=== PATIENT | female | born 1990 | race Caucasian/White ===

== ENCOUNTER 2016-11-03 16:42 | Inpatient (IN) | payer BC ==
[~2016-11-03] VITALS: Ht 167.6 cm; Wt 85.0 kg
--- NOTE | ~2016-11-03 | DS ---
PATIENT'S NAME: VÍCTOR CARBALLO [place] AGE: 26 Y [address] ROOM: [id number] [place], [place] [address] LOCATION: GPCU ADMIT DATE: 11/03/2016 Discharge Summary DISCHARGE DATE: 11/06/2016 FAMILY PHYSICIAN: Slim Arellano MD ATTENDING PHYSICIAN: Tay Perez PRINCIPAL DISCHARGE DIAGNOSIS: Diabetic ketoacidosis. SECONDARY DIAGNOSES: 1. Diabetes mellitus, type 2, uncontrolled. 2. Leukocytosis. 3. Systemic inflammatory response syndrome without focus of infection identified. 4. Cough. 5. Hypokalemia, mild. 6. Hypertension. CONSULTATIONS: community nutrition educator on 11/04/2016. PROCEDURES: None. BRIEF HISTORY: Ms. Carballo is a 26-year-old female who has been insulin-dependent diabetic on insulin pump without good outpatient followup. She presented to the emergency room after developing nausea, which was progressive and intractable with epigastric pain and anorexia. This occurred after she had been drinking the night before. She was having some chills and sweats, but no documented fever. On admission, she had epigastric abdominal pain and complained of feeling generally sore all over. She was noted to be in diabetic ketoacidosis. On admission, white blood cell count elevated at 30,000, hemoglobin 14.4, hematocrit 49.3, and platelets 481, BUN and creatinine 29 and 2.4 respectively, sodium 131, and potassium 5.6. Her CO2 was less than 5. Her pH was less than 7. She was given an amp of bicarb. Her serum glucose was 1005. She was admitted to the ICU, put on insulin drip, hourly blood sugar checks, and she did well with closing of our gaps within the 1st day of admission and she was taken off of the insulin drip early in morning of 11/04/2016. She was treated with Levemir and sliding scale on 11/05/2016 and restarted on her insulin pump on 11/05/2016. Since then, she has been improving. She has mild cough that is nonproductive of any purulent sputum. Blood glucose was 207, prior to breakfast it was 131, she ran into 200s yesterday, and at 2 a.m., she was 127. She has been able to tolerate food, no nausea, her myalgias are improving, she PATIENT'S NAME: VÍCTOR CARBALLO [place] AGE: 26 Y [address] ROOM: [id number] [place], [place] [address] LOCATION: GPCU ADMIT DATE: 11/03/2016 Discharge Summary DISCHARGE DATE: 11/06/2016 FAMILY PHYSICIAN: Slim Arellano MD ATTENDING PHYSICIAN: Tay Perez has been ambulating in the hallway. She and her mom who is present in the room agreed with discharge plan today. INSTRUCTIONS AT DISCHARGE: ADA diet, low carb, high-protein foods. She was instructed to have a lean protein with every meal and eat some high potassium foods of cantaloupes, oranges, or bananas. Activity walk 30 minutes everyday. Follow up with Dr. Parker, November 14 at 11 a.m., [facility], November 14 at 10 a.m., and [facility] dietitian on November 24 at 10:30 a.m. MEDICATIONS AT DISCHARGE: Include regular insulin via pump. She is instructed to follow the directions given by the ems educator yesterday. She is instructed to limit her use of ibuprofen due to potential renal side effects. She had been taking 200 mg tabs 2-3 every 6 hours p.r.n. at home. She will be given a script for Tessalon Perles 100 mg p.o. q.8 h. p.r.n. cough. She will be given a script for lisinopril 2.5 mg 1 p.o. daily, blood pressure is currently 155/110, she will also be given a script for azithromycin 500 1 p.o. daily x3 days for possible atypical pneumonia given the current low-grade temp of 99.3 to 99.9 and her mild cough. She is instructed to call Dr. Parker if her temperature goes over 101. CONDITION AT DISCHARGE: Good. Greater than 30 minutes spent in the discharge process. SONAM PAYAN MD LM/sandra /[id number] d: 11/07/16 0517 t: 11/14/16 1820, DISCHARGE SUMMARY
--- NOTE | ~2016-11-03 | HP ---
[facility] 26 [facility] [address] ROOM: [place] [address] LOCATION: GICU ADMIT DATE: 11/03/2016 History & Physical DISCHARGE DATE: FAMILY PHYSICIAN: Slim Arellano MD ATTENDING PHYSICIAN: Tay Perez DATE OF SERVICE: CHIEF COMPLAINT: Diabetic ketoacidosis. HISTORY OF PRESENTING ILLNESS: This 26-year-old white female with history of insulin-dependent diabetes mellitus utilizing an insulin pump and came to the emergency department this evening with intractable nausea, vomiting, and abdominal pain, which started yesterday. She admits that she had gone out to have some drinks with friends as she often does on Thursday night. She indulged, but cannot quantify exactly how much that she drank. Sometime during the night on Thursday morning, she developed some nausea. This became progressive and intractable. She developed diffuse epigastric pain and anorexia. This persisted over the course of the day yesterday and through this morning until she ultimately decided to come to the emergency room today. She denies noticing fevers, but admits that she has not actually taken her temperature. She has had some chills and sweats. Also, complains of some aching in her chest, but feels better since IV fluids were initiated. Her abdominal pain is epigastric, but also resolving now. She complains of feeling "sore." She has been stooling regularly and stooled last yesterday. She has also been voiding in large amounts over the course of the day today. She denies body rash, no numbness or tingling in her extremities or any associated physical or constitutional complaints. ALLERGIES: NO KNOWN DRUG ALLERGIES. ILLNESSES: 1. Insulin-dependent diabetes mellitus. 2. Obesity. CURRENT MEDICATIONS: NovoLog per insulin pump and this is managed by Dr. Deny Arellano in [place] and an director of strategic sourcing in [place]. She has not seen the director of strategic sourcing for a year. FAMILY HISTORY: [facility] 26 Y [address] ROOM: [place] [address] LOCATION: GI ADMIT DATE: 11/03/2016 History & Physical DISCHARGE DATE: FAMILY PHYSICIAN: Slim Arellano MD ATTENDING PHYSICIAN: Tay Perez Largely noncontributory. Maternal grandmother did have breast cancer. She has another cousin who also had breast cancer recently. SOCIAL HISTORY: She is unmarried. Lives here in [place]. She works at [employer]. She admits to binge type drinking typically on Saturdays and Wednesdays. She denies any illicit drug use. She occasionally smokes tobacco. REVIEW OF SYSTEMS: As per HPI. All other organ systems reviewed and are negative. OBJECTIVE: VITAL SIGNS: Temperature. 99.1, pulse 114, respirations 28, blood pressure 136/86, and O2 sat 97% on room air. GENERAL: She is anxious and visibly tachypneic in moderate distress. SKIN: Supple, pink, warm, dry. No obvious rashes. She does have a tattoo over the left upper chest. HEENT: Otherwise, normocephalic. Sclerae nonicteric. Pupils equal, round, and reactive to light and accommodation. Extraocular movements appear intact. Nasal turbinates normal in appearance. Oropharynx clear. Mucous membranes are pink and moist. NECK: Supple. No masses or adenopathy. No thyromegaly. No JVD. CHEST: Chest wall is symmetrical. HEART: Tachycardic, but regular. LUNGS: Diminished at the bases. No crackles or wheezes are heard. No areas of consolidation. ABDOMEN: Soft and obese. Diffusely tender with some guarding across the midepigastrium. No masses. No hepatosplenomegaly. AND RECTAL: Not done. EXTREMITIES: Display no significant clubbing, cyanosis, or edema. NEUROLOGICAL: Anxious, but no focal deficits. LABORATORY AND X-RAY DATA: CBC showed a white blood cell count elevated at 30,000, hemoglobin is 14.4, hematocrit 49.3, and platelets 481. Chemistries revealed BUN and creatinine of 29 and 2.4 respectively, sodium and potassium 131 and 5.6, chloride and CO2 are 94 and less than 5, calcium is 9.1, AST and ALT 20 and 22 respectively, bilirubin is 0.6, and magnesium level was elevated at 2.8. Amylase and lipase were within normal limits. Serum ethanol was less than 0.01. TSH was 1.24, free T4 was 1.0, and glucose was 1005. PT and PTT 10.2 and 30 with an INR of 0.97. Urinalysis demonstrated a 1000 of glucose, 150 of ketones, negative for white blood cells and 2-5 rbc's. Urine drug screen was negative. Serum hCG was less than 1. Serum acetone was positive at 1:16. D-dimer was within normal limits. PATIENT'S NAME: VÍCTOR CARBALLO [facility] AGE: 26 Y [address] ROOM: [place] [address] LOCATION: [facility] ADMIT DATE: 11/03/2016 History & Physical DISCHARGE DATE: FAMILY PHYSICIAN: Slim Arellano MD ATTENDING PHYSICIAN: Tay Perez ASSESSMENT AND PLAN: 1. Diabetic ketoacidosis. We will admit to inpatient care. She is going to the ICU. She has already received 3 L normal saline in the emergency department. She got a bolus of insulin there and we will initiate intravenous insulin drip. We will place her on the diabetic ketoacidosis pathway. Plan to continue with aggressive fluid hydration therapy and transition to D5 NS with 20 mEq of potassium once her glucose has fallen to below 250. She did receive an amp of bicarb in the emergency room. We will follow up with electrolytes again this evening and follow her serum bicarb and anion gap. 2. Systemic inflammatory response syndrome, presumably secondary to diabetic ketoacidosis, as above. There is no clear infectious source. We will initiate broad-spectrum antibiotic therapy with Zosyn and follow clinically. Follow up when culture results are known. I will repeat a lactate again at 6 hour vandana. 3. Insulin-dependent diabetes mellitus. We will request diabetes education. She needs closer clinical follow up and counseling regarding alcohol use. 4. Deep venous thrombosis prophylaxis. We will follow the deep vein thrombosis protocol. MD NICOLA FORRESTER/talishal /[id number] D: 018 T: 958 HISTORY & PHYSICAL
--- NOTE | ~2016-11-03 | ER ---
[facility] 26 Y [address] ROOM: [place] [address] LOCATION: GICU ADMIT DATE: 11/03/2016 ER/Outpatient Report DISCHARGE DATE: FAMILY PHYSICIAN: Slim Arellano MD ATTENDING PHYSICIAN: Tay Perez Time of Arrival: 1647 hours. Time of Evaluation: 1650 hours. CHIEF COMPLAINT: Vomiting and shortness of breath. HISTORY OF PRESENT ILLNESS: The patient states approximately 02:30 this morning, she started getting sick to her stomach. She has been vomiting pretty consistently all day today. She states that she has developed some generalized aches of her whole body and feeling short of breath, extreme fatigue. She is an insulin-dependent diabetic and wears an insulin pump. She states she has not checked her blood sugars. She states she does drink alcohol on a regular basis. Last drink was Thursday night and Thursday morning. She states that she has not felt well for the last 3 days. ALLERGIES: NO KNOWN ALLERGIES. CURRENT MEDICATIONS: On the chart and reviewed by me. PAST MEDICAL HISTORY: Insulin-dependent diabetes. SOCIAL HISTORY: She denies use of tobacco. Does smoke marijuana and drinks alcohol on an almost daily occurrence. She states her primary provider is Dr. Arellano in [place], but she has not seen him for a couple years. She is unsure when her last menstrual period was. She states the last time she had intercourse was a couple weeks ago and she used Plan B after that encounter. REVIEW OF SYSTEMS: All negative other than those mentioned in the HPI. PHYSICAL EXAMINATION: VITAL SIGNS: She weighs 81 kg. Blood pressure was 178/85, pulse of 140, respirations 30, temperature of 99 tympanic, O2 saturations are 96% on room air. PATIENT'S NAME: [facility] AGE: 26 Y [address] ROOM: [place] [address] LOCATION: GICU ADMIT DATE: 11/03/2016 ER/Outpatient Report DISCHARGE DATE: FAMILY PHYSICIAN: Slim Arellano MD ATTENDING PHYSICIAN: Tay Perez GENERAL: She is awake, alert, and oriented x4. RESPIRATIONS: Her respirations are rapid, slightly labored. She is encouraged to take deep breath and slower breathing down. HEENT: Pupils are equal reactive to light. Extraocular movement is intact. Nasal is clear. Oropharynx is clear. NECK: Supple. No lymphadenopathy. LUNGS: Lung sounds are clear throughout. HEART: Regular rate and rhythm and rapid. ABDOMEN: Soft, nondistended. Bowel sounds are present. EXTREMITIES: She walked in with a steady even gait. No peripheral edema noted. Moves all extremities strongly and equally. EMERGENCY DEPARTMENT COURSE: Saline lock was initiated. Fluids of normal saline were started at a wide- open rate. Lab work was drawn. CBC shows a white count of 30, hemoglobin 14.4 with hematocrit of 49.3. Her pH is 6.9, it was called to Dr. Espinoza. He wants the patient to receive an amp of bicarb which was done. Lactate was 11.2. Acetone was positive. D-dimer is negative. HCG is negative. Sodium is 131, potassium is 5.6, chlorides were 94, CO2 was less than 5, glucose is 1005, BUN is 29, creatinine of 2.9, magnesium is 2.8, GFR is 25. I attempted to do an EKG and this shows sinus tachy. The patient is just moving constantly as she is uncomfortable. Dr. Espinoza was consulted regarding the patient. She was given a total of 3 L of normal saline here in the ER. She got Zofran 4 mg IV and fourth liter of fluids was started at 200 an hour. She was given Ativan 1 mg IV, the bicarb 1 amp IV, and then insulin bolus of 10 units was given with a drip started at [address] Perez was contacted regarding the patient as she has no primary provider here in town. IMPRESSION: Diabetic ketoacidosis. PLAN: The patient will be placed in ICU for care of the hospitalist. She is aware of the plan. Critical care time was 30-60 minutes. NBA MONTENEGRO APRN FOR MD ÁNGEL JOHNSON/sandra /[id number] d: 11/04/16 0050 t: 11/08/16610, OUTPATIENT REPORT
[2016-11-03 17:15] LABS: HEMATOCRIT 49.3 % (33.0-46.0); HEMOGLOBIN 14.4 g/dL (11.0-15.0); MCH 29.6 pg (27.0-34.0); MCHC 29.2 gm/dL (32.0-36.5); MCV 101.2 fl (83.0-98.0); MPV 10.7 fl (9.4-12.4); PLATELET COUNT 481 K/uL (150-450); RBC 4.87 M/uL (3.50-5.00); RDW-CV 13.6 % (11.9-14.6)
[2016-11-03 17:25] LABS: LACTATE 11.2 mEq/L (0.50-1.60)
[2016-11-03 17:28] LABS: INR - (THERAPEUTIC) 0.97 (0.92-1.07); PROTIME 10.2 SECONDS (9.8-11.4); PTT 30 SECONDS (25-32)
[2016-11-03 17:50] LABS: ALBUMIN 3.9 gm/dL (3.5-5.0); ALK PHOS 246 IU/L (33-138); ALT 22 IU/L (12-78); AST 20 IU/L (10-40); BLOOD UREA NITROGEN 29 mg/dL (6-24); CALCIUM 9.1 mg/dL (8.5-10.5); CHLORIDE 94 mMol/L (96-110); CREATININE 2.4 mg/dL (0.5-1.1); ESTIMATED GFR (MDRD EQUATION) 25; SODIUM 131 mMol/L (135-145); TOTAL BILIRUBIN 0.6 mg/dL (0.0-1.5); TOTAL PROTEIN 8.1 g/dL (6.0-8.4)
[2016-11-03 18:06] LABS: BANDED NEUTROPHILS % 10 %; LYMPHOCYTE # 4.2 K/uL (0.8-4.0); LYMPHOCYTE % 14 %; MONOCYTE # 1.8 K/uL (0.0-1.0); SEGMENTED NEUTROPHIL % 70 %
[2016-11-03 18:15] LABS: BILIRUBIN URINE NEGATIVE (NEGATIVE); BLOOD URINE 250 /UL (NEGATIVE); COLOR URINE STRAW (YELLOW); GLUCOSE URINE 1000 mg/dL (NEGATIVE); KETONE URINE 150 mg/dL (NEGATIVE); LEUKOCYTES URINE NEGATIVE /UL (NEGATIVE); NITRITE URINE NEGATIVE (NEGATIVE); PROTEIN URINE 15 mg/dL (NEGATIVE); SPEC GRAVITY URINE 1.015 (1.003-1.035); UROBILINOGEN URINE NORMAL (NORMAL)
[2016-11-03 18:20] LABS: CO2 < 5 mMol/L (22-32); POTASSIUM 5.6 mMol/L (3.7-5.1)
[2016-11-03 18:21] LABS: MAGNESIUM 2.8 mg/dL (1.8-2.6)
[2016-11-03 18:36] LABS: COCAINE NEGATIVE (NEGATIVE); OPIATES NEGATIVE (NEGATIVE)
[2016-11-03 18:37] LABS: AMPHETAMINE NEGATIVE (NEGATIVE); BARBITURATE NEGATIVE (NEGATIVE)
[2016-11-03 18:39] LABS: TURBIDITY URINE 1+ (CLEAR)
[2016-11-03 18:40] LABS: WBC URINE NEGATIVE #/HPF (NEGATIVE)
[2016-11-03 18:41] LABS: BACTERIA URINE NEGATIVE (NEGATIVE)
[2016-11-03] MEDS ORDERED: NOVOLOG100 UNIT/M SUB-Q (20:04)
[2016-11-03] MEDS ORDERED: ALEVE220 MG PO (20:05)
[2016-11-03] MEDS ORDERED: ADVIL200 MG PO (20:05)
[2016-11-03 20:43] LABS: CHLORIDE 111 mMol/L (96-110)
[2016-11-03 20:51] LABS: CO2 < 5 mMol/L (22-32); MAGNESIUM 2.5 mg/dL (1.8-2.6); SODIUM 142 mMol/L (135-145)
[2016-11-03 23:02] LABS: CALCIUM 8.5 mg/dL (8.5-10.5); CREATININE 1.7 mg/dL (0.5-1.1); MAGNESIUM 2.5 mg/dL (1.8-2.6); POTASSIUM 4.5 mMol/L (3.7-5.1)
[2016-11-03 23:03] LABS: ANION GAP 27.5 (10.0-19.0)
[2016-11-04 00:12] LABS: ANION GAP 21.8 (10.0-19.0); POTASSIUM 3.8 mMol/L (3.7-5.1)
[2016-11-04 04:35] LABS: POTASSIUM 3.8 mMol/L (3.7-5.1)
[2016-11-04 04:39] LABS: ANION GAP 13.8 (10.0-19.0)
--- NOTE | 2016-11-04 04:42 | NUR ---
Significant Event: Pt admitted to ICU with labored Kussmaul breathing, with diagnosis of DKA, blood sugars in ER >1000. Pt given 4L NS in ER. Pt was started on insulin gtt in ER. Insulin gtt as high as 15units/hr, currently infusing at 7 units/hr, blood sugars are <200 now. Pt is alert/oriented. Cooperative. MOther at bedside. Voids per toilet. SBA with ambulation. PIV x2. 20Mmol Kphos given tonight. IVF changed to D51/2NS with 40kcl this am. Follow up: Insulin Gtt protocol
[2016-11-04 08:28] LABS: BLOOD UREA NITROGEN 21 mg/dL (6-24); CALCIUM 8.1 mg/dL (8.5-10.5); CO2 18 mMol/L (22-32); CREATININE 1.1 mg/dL (0.5-1.1); POTASSIUM 3.7 mMol/L (3.7-5.1); SODIUM 145 mMol/L (135-145)
[2016-11-04 08:29] LABS: ANION GAP 13.7 (10.0-19.0); CHLORIDE 117 mMol/L (96-110); ESTIMATED GFR (MDRD EQUATION) > 60; PHOSPHORUS 1.8 mg/dL (2.5-4.9)
--- NOTE | 2016-11-04 08:34 | NUR ---
CONSULT FOR DKA NOTED. WILL VISIT W/ PT PRIOR TO DISMISSAL.
[2016-11-04 09:32] LABS: BASOPHIL % 0.2 %; HEMOGLOBIN 12.2 g/dL (11.0-15.0); IMMATURE GRANULOCYTE # 0.1 K/uL (0.0-0.3); IMMATURE GRANULOCYTE % 0.5 %; LYMPHOCYTE # 2.4 K/uL (0.8-4.0); LYMPHOCYTE % 12.3 %; MCH 29.8 pg (27.0-34.0); MONOCYTE # 2.4 K/uL (0.0-1.0); MONOCYTE % 12.6 %; MPV 9.7 fl (9.4-12.4); NEUTROPHIL # (ANC) 14.2 K/uL (1.8-7.8); NEUTROPHIL % 74.4 %; NRBC % 0 /100WBC (0-0.00); RBC 4.09 M/uL (3.50-5.00); RDW-CV 13.5 % (11.9-14.6)
[2016-11-04 09:34] LABS: HEMATOCRIT 36.9 % (33.0-46.0); MCHC 33.1 gm/dL (32.0-36.5); MCV 90.2 fl (83.0-98.0); PLATELET COUNT 353 K/uL (150-450); WBC 19.1 K/uL (4.0-11.0)
--- NOTE | 2016-11-04 09:48 | NUR ---
PT NOT FEELING WELL THIS AM; PARENTS THINK PT COULD USE SOME ASSISTANCE IN FOLLOWING DIABETIC DIET. WILL F/U PRIOR TO DISMISSAL TO DISCUSS.
--- NOTE | 2016-11-04 11:00 | NUR ---
Diabetes consult: Received a consult on this patient due to her admission with DKA and the fact that she uses an insulin pump. The patient is alert and oriented with family at bedside. She reports having a poor appetite and feels tired. She denies complaints of nausea or vomiting. The patient had been managed on the insulin gtt but was transitioned to levemir and subq injections this morning. Her pump was downloaded and revealed that she has not been testing blood sugars or using her pump to figure insulin pump doses. She calculated the amount of insulin needed to cover carbs for one meal and boluses only one time out of the time. The majority of the time she is running off of her basal rate set at 1.4 unit/hr. Discussed her current A1C of 10.1% with her and her parents. Informed her that guessing her doses is not controlling blood sugars and leaving her vulnerable to complications. She verbalizes understanding however, I question how motivated she is to change. The patient does not want her insulin pump restarted today as she is feeling poor. Per the patient's insulin pump she is receiving 33 units of basal insulin, and insulin to carb ratio of 1 unit to 10 grams of carbs and an ISF of 50. Recommend that if blood sugars elevate today she be given an additional 10 units of Levemir to add up to a total dose of 30 (Received 20 units this a.m.) and if she starts eating to add an insulin to carb ratio of 1 unit for every 10 grams of carbs with meals. She already is receiving Novolog moderate correction, which is comparable to her pump. Attempted to communicate this to Dr. bruce by phone x 2. A recommendation was left in the progress note for her review. Recommend restarting insulin pump in the morning instead of dosing patient with a.m. dose of Levemir. .
--- NOTE | 2016-11-04 15:13 | NUR ---
SIGNIFICANT EVENT: PATIENT ALERT, ORIENTED X3. OPENS EYES SPONTANEOUSLY AND TO VOICE. PUPILS EQUAL AND REACTIVE. PATIENT'S SPEECH IS SLOW. APPROPRIATELY CONVERSATIONAL. NO FACIAL ASYMMETRY. PATIENT COMPLAINED OF GENERALIZEDPAIN/ HEADACHE AT THE BEGINING OF THE SHIFT, DR PAYAN AWARE, TYLENOL 650MG PO GIVEN, RELIEF NOTED. PATIENT DENIES ANY NUMBNESS OR TINGLING. PATIENT MVOES ALL 4 EXTREMITIES SPOTNANEOUSLY AND TO COMMANDS. EQUAL STRENGTH THROUGHOUT. PATIETN HAS BEEN IN SINUS TACHYCARDIA RHYTHM, HR 102-110S. PULSES PALPABLE THROUGHOUT. BP STABLE, SBP 120-130S. MAP>65. DEPENDENT EDEMA PRESENT IN FEET. AFEBRILE. PATIENT HAS BEEN ON ROOM AIR, SPONT COUGH, NON PRODUCTIVE. INCENTIVE SPIROMETER UTILIZED HOURLY WHILE AWAKE, PATIENT COOPERATIVE. BOWEL SOUNDS PRESENT, NO BM. DIABETIC 1800 DON DIET. INSULIN DRIP D/C'D. ACCU CHECKS AC/HS MODERATE SLIDING SCALE. PATIENT STATES SHE IS AT THE END OF MENSTRUAL CYCLE, DR PAYAN NOTIFIED AND AWARE. ADEQUATE URINE OUTPUT. PATIENT AMBULATES TO BATHROOM TO VOID, 1 PERSON STAND BY ASSIST AND GAITBELT. NO NEW SKIN ISSUES NOTED. BATH COMPLETED TODAY. ESME REPOSITIONS SELF AT LEAST HOURLY. L) A/C PIV INFUSING KPHOS, NO COMPLICATIONS, GOOD BLOOD RETURN, NO REDNESS. L) HAND PIV INFUSING 1/2 NS AT 100ML/HR, NO COMPLICATIONS. FOLLOW UP: CONTINUE TO MONITOR. PCU STATUS.
--- NOTE | 2016-11-04 15:19 | NUR ---
Introduced self and role of care management to pt's parents. Pt lives in [place] and work at [employer] and she lives with another couple. Mom and dad state she has not been taking care of her diabetes and well out partying. She has a doctor in [place] but has not went lately and are wanting a doctor in [place]. I explained I can look at both clinics in [facility] and who is taking new patients and also have Marycarmen with the hospitalist help as well. I also stated diabetic education will be up and they can also assist on what is needed on an outpt setting. I did call the clinics and gave mom a list of who was accepting new pt's and that we can schedule that on discharge once they let us know who they would like. I also spoke with Marycarmen and she will touch base with pt tomorrow.
[2016-11-04 16:20] LABS: BLOOD UREA NITROGEN 16 mg/dL (6-24); CALCIUM 7.9 mg/dL (8.5-10.5); CHLORIDE 112 mMol/L (96-110); CREATININE 0.9 mg/dL (0.5-1.1); ESTIMATED GFR (MDRD EQUATION) > 60; PHOSPHORUS 2.6 mg/dL (2.5-4.9); SODIUM 142 mMol/L (135-145)
[2016-11-04 16:22] LABS: CO2 17 mMol/L (22-32)
[2016-11-05 01:48] LABS: ANION GAP 13.7 (10.0-19.0); BLOOD UREA NITROGEN 9 mg/dL (6-24); CALCIUM 8.3 mg/dL (8.5-10.5); CHLORIDE 112 mMol/L (96-110); CO2 20 mMol/L (22-32); CREATININE 0.8 mg/dL (0.5-1.1); ESTIMATED GFR (MDRD EQUATION) > 60; POTASSIUM 3.7 mMol/L (3.7-5.1); SODIUM 142 mMol/L (135-145)
[2016-11-05 01:58] LABS: PHOSPHORUS 1.6 mg/dL (2.5-4.9)
--- NOTE | 2016-11-05 05:22 | NUR ---
patient is sleepy but easily awake will follow simple commands a/o times 3 cooperative out of bed with 1 rn assistance,clear upper lungs sound diminished on the bases,moist stronge cough. follow up:continue to monitor patient's hemodynamic and respiratory status closely.
[2016-11-05 08:09] LABS: ANION GAP 13.6 (10.0-19.0); BLOOD UREA NITROGEN 9 mg/dL (6-24); CALCIUM 7.9 mg/dL (8.5-10.5); CHLORIDE 109 mMol/L (96-110); CO2 21 mMol/L (22-32); CREATININE 0.7 mg/dL (0.5-1.1); ESTIMATED GFR (MDRD EQUATION) > 60; POTASSIUM 3.6 mMol/L (3.7-5.1); SODIUM 140 mMol/L (135-145)
[2016-11-05 08:10] LABS: PHOSPHORUS 1.6 mg/dL (2.5-4.9)
--- NOTE | 2016-11-05 08:30 | NUR ---
Diabetes consult: Patient is alert and oriented this morning, reports she still feels tired. Patient's mom sent to obtain insulin pump supplies with plan to restart pump upon return. Diabetes Education was provided guided by the diabetes survival skills checklist. In addition, safe insulin pumping guidelines were reviewed, with a copy of the information given to the patient. The patient reports she is wanting to establish care with Dr. Parker and would like to see the CDE in the [facility] on the same day. Appointments were made and documented in the chart.
--- NOTE | 2016-11-05 12:00 | NUR ---
Diabetes consult: Patient's insulin pump restarted with current basal rate at 1.4 units/hr. Patient's blood sugar at the time of restart was 244. The patient was able to demonstrate the ability to use her pump. Mom was present at bedside at the time of restart. The patient has a history of excessive consumption of alcohol. Discussed safe drinking practices with insulin and talked to the family about looking into a DexCom. Patient and family were interested, therefore DexCom packet was provided. The patient was instructed on sick day management and encouraged to purchase ketostix. In addition, she lives with two roommates. I suggested she teach the roommates how to check a blood sugar and administer glucagon in case of a severe low. I offered to meet with her roommates, however the patient reports both roommates have to work today and tomorrow. The patient does not have much of an appetite and has only eaten bites out of a popsicle. Blood sugar two hours after restart and lunch at 214. Will continue to follow.
--- NOTE | 2016-11-05 12:50 | NUR ---
Significant Event: a/OX3. VSS. RA. Lungs clear. Poor appetite. Insulin pump restarted per [facility] RN with diabetic education. Last blood glucose 244. Tylenol 650 mg x1 for generalized pain with relief. Follow up: Plan to D/C tomorrow
--- NOTE | 2016-11-05 16:49 | NUR ---
Significant Event: A/OX3, VSS ON ROOM AIR. TYLENOL GIVEN AT 1516 FOR COMPLAINTS OF A HEADACHE. PT. SLEPT WELL THIS AFTERNOON. L)AC IV HAS 1/2NS @ 100mL/HR WITH K-PHOS, L)HAND IV HAS ZOSYN. PT. GETS UP SBA TO BATHROOM. MOTHER HERE. PTS. OWN INSULIN PUMP RESTARTED THIS AM, ACCUCHECK @ 1300 WAS 214 PT. GAVE HERSELF A BOLUS & RECHECKING IT @ 1700. 1+EDEMA TO BILATERAL LOWER LEGS. LEFT HAND HAS 2+EDEMA & IS SORE TO TOUCH. RASH TO BACK, ARMS. VOIDS FINE. PT. IS TO RECEIVE NO LONG-ACTING INSULIN WITHOUT CONSULTING [facility]. FIRST. POSSIBLE TO D/C TO HOME IN AM. Follow up: CONTINUE WITH POC.
--- NOTE | 2016-11-06 04:49 | NUR ---
Significant Event: Patient is A/Ox3. VSS on RA. Blood sugars this shift were 212 and 127. Patient did adjust her rate on her pump after the 212 blood sugar. Patient does have a hacking cough, received orders for cough medications. Tessalon pearles given x1 with short term relief. Up independently in room. Family at bedside. Follow up: Home today?
[2016-11-06 05:08] LABS: BASOPHIL % 0.5 %; EOSINOPHIL # 0.2 K/uL (0.0-0.5); EOSINOPHIL % 1.7 %; HEMATOCRIT 35.1 % (33.0-46.0); HEMOGLOBIN 11.5 g/dL (11.0-15.0); IMMATURE GRANULOCYTE % 0.2 %; LYMPHOCYTE # 2.4 K/uL (0.8-4.0); LYMPHOCYTE % 28.1 %; MCH 29.3 pg (27.0-34.0); MCHC 32.8 gm/dL (32.0-36.5); MCV 89.5 fl (83.0-98.0); MONOCYTE # 0.8 K/uL (0.0-1.0); MPV 9.7 fl (9.4-12.4); NEUTROPHIL # (ANC) 5.2 K/uL (1.8-7.8); NEUTROPHIL % 60.5 %; NRBC % 0 /100WBC (0-0.00); RBC 3.92 M/uL (3.50-5.00); RDW-CV 13.4 % (11.9-14.6); WBC 8.6 K/uL (4.0-11.0)
[2016-11-06 05:12] LABS: PLATELET COUNT 247 K/uL (150-450)
[2016-11-06 05:36] LABS: ALBUMIN 2.6 gm/dL (3.5-5.0); ALK PHOS 129 IU/L (33-138); ALT 31 IU/L (12-78); ANION GAP 13.3 (10.0-19.0); AST 38 IU/L (10-40); BLOOD UREA NITROGEN 5 mg/dL (6-24); CALCIUM 8.1 mg/dL (8.5-10.5); CHLORIDE 110 mMol/L (96-110); CO2 22 mMol/L (22-32); CREATININE 0.5 mg/dL (0.5-1.1); ESTIMATED GFR (MDRD EQUATION) > 60; PHOSPHORUS 2.9 mg/dL (2.5-4.9); POTASSIUM 3.3 mMol/L (3.7-5.1); SODIUM 142 mMol/L (135-145); TOTAL PROTEIN 5.7 g/dL (6.0-8.4)
[2016-11-06 05:37] LABS: TOTAL BILIRUBIN 0.8 mg/dL (0.0-1.5)
--- NOTE | 2016-11-06 09:00 | NUR ---
Diabetes consult: Patient's blood sugars have been well controlled since restarting the insulin pump. She has been putting correcting and putting carb count into her pump correctly. She is planning to discharge today and will go stay with her parents for the next couple over the weekend. The patient reports needing a glucagon kit, so a voucher was given. In addition, she reports not having any Levemir at home in case of pump failure. Patient was instructed on pump safety again and informed that if her pump fails she needs to take LEvemir 30 units (current basal dose for 24 hours) to sustain her until replacement pump can be found. The patient voices understanding of sick day guidelines and when to take a manual subq injection. She denies further questions or concerns.
--- NOTE | 2016-11-06 11:53 | NUR ---
Spoke with patient and her mother. They had just set up an appointment to meet with dietitian on an outpatient basis. Introduced myself and my role. Mother relates that patient eats out frequently, and it is difficult to guess the carb content of foods at restaurants. RD provided them with two phone apps that would helpful. Will follow up with patient as an outpatient.
--- NOTE | 2016-11-06 12:34 | NUR ---
Social visit with pt and her mother. She is feeling better today and hoping to go home today. I did ask about md wcik they will be seeing Dr Marsh her at [facility] and he already came up to say hi. At this time denies any other need.
[2016-11-06] MEDS ORDERED: LAC-HYDRIN 12%225 GM (15:17)
[2016-11-06] MEDS ORDERED: TESSALON PERLE100 MG PO ×2 (15:17→15:18)
[2016-11-06] MEDS ORDERED: ZESTRIL2.5 MG PO (15:18)
[2016-11-06] MEDS ORDERED: AZITHROMYCIN500 MG PO (15:19)
[2016-11-06] MEDS ORDERED: GLUCAGON EMERGEN1 MG (15:31)
[2016-11-06] MEDS ORDERED: LEVEMIR100 UNIT/1 SUB-Q (15:34)
== END 2016-11-06 16:25 | disposition disaster alternative care site (69) | DRG 637 ==
LOC: GMED 16:42 → GICU 17:54 → GPCU 11-05 12:38
PROVIDERS: Internal Medicine; Nurse Practitioner Family; ADMIT Family Medicine
DX: E13.10 Other specified diabetes mellitus with ketoacidosis without coma (principal); J18.9 Pneumonia, unspecified organism; E66.9 Obesity, unspecified; E87.6 Hypokalemia; I10 Essential (primary) hypertension; Z96.41 Presence of insulin pump (external) (internal); Z79.4 Long term (current) use of insulin; Z68.30 Body mass index [BMI] 30.0-30.9, adult
CPT/HCPCS: G0009; G0480; J2060; J2405; J2543; J3480; J7030; J7050